=== PATIENT | female | born 1995 | race Caucasian/White ===

== ENCOUNTER 2017-03-07 00:49 | Emergency (ER) | payer OTHER ==
[2017-03-07 00:57] VITALS: BP 110/66; PULSE 71; RESP 16; TEMP 98.6; O2SAT 98
[2017-03-07] MEDS ORDERED: IBUPROFEN 600 MG TAB PO ONE (01:14)
--- NOTE | 2017-03-07 01:34 | EDPHY ---
H & P Stated Complaint: r back, r side pain, heard a "pop" while laughing earlier tonight Time Seen by Provider: 03/07/17 01:00 HPI/ROS: Chief Complaint: Right chest wall pain HPI: 22-year-old woman with past medical history of a prior right chest injury rib fractures had the sudden onset of pain in her right lateral thoracic region while laughing. She felt a sudden sharp pain. His has since had some pain right at that site with deep inspiration. No shortness of breath. No cough. No fevers or chills. She is not smoke. She is not on oral contraceptives. She has not had any recent periods of immobility. No leg pain or swelling. No risk factors for PE. She is not taking any medications. She has been doing yoga and has some chronic pain in that region from prior injuries. No new falls or other trauma. ROS: 10 point Review of Systems is negative except as noted in the HPI. PMH: Rib fractures Social History: No smoking, no alcohol, no recreational drug use Family History: non-contributory Physical Exam: Gen: Awake, Alert, No Distress, vital signs reviewed HEENT: Nose: no rhinorrhea Eyes: PERRLA, EOMI Mouth: Moist mucosa Neck: Supple, no JVD Chest: She has tenderness in the right posterior axillary line at approximately ribs 6 through 8 reproducing presenting complaint, lungs clear to auscultation Heart: S1, S2 normal, no murmur Abd: Soft, non-tender, no guarding Back: no CVA tenderness, no midline tenderness Ext: no edema, non-tender Skin: no rash Neuro: CN II-XII intact, Sensation grossly intact, Strength 5/5 in bilateral upper and lower extremities - Personal History LMP (Females 10-55): 8-14 Days Ago Current Tetanus/Diphtheria Vaccine: Yes - Medical/Surgical History Hx Asthma: No Hx Chronic Respiratory Disease: No Hx Diabetes: No Hx Cardiac Disease: No Hx Renal Disease: No Hx Cirrhosis: No Hx Alcoholism: No Hx HIV/AIDS: No Hx Splenectomy or Spleen Trauma: No Other PMH: L4-L5 fx, appendectomy - Social History Smoking Status: Never smoked Constitutional: Initial Vital Signs Temperature (C) 37.0 C 03/07/17 00:53 Heart Rate 71 03/07/17 00:53 Respiratory Rate 16 03/07/17 00:53 Blood Pressure 110/66 03/07/17 00:53 O2 Sat (%) 98 03/07/17 00:53 O2 Delivery Mode Room Air Allergies/Adverse Reactions: acetaminophen [From Vicodin] Allergy (Verified 03/07/17 00:57) hydrocodone [From Vicodin] Allergy (Verified 03/07/17 00:58) Hives oxycodone [From Percocet] Allergy (Verified 03/07/17 00:58) Hives Home Medications: Medication Instructions Recorded NK [No Known Home Meds] 03/07/17 Medical Decision Making ED Course/Re-evaluation: 22-year-old woman with right lateral or posterior rib pain after laughing. She does not have risk factors for PE. She is not tachycardic. She is not hypoxemic. She is not tachypneic. Chest x-ray shows no acute injury. Patient has been reassured. She will take anti-inflammatories and ice. She will follow up at [facility] for any concerns. Departure - Departure Disposition: Home, Routine, Self-Care Clinical Impression: Chest wall pain Condition: Good Instructions: Chest Wall Pain (ED) Additional Instructions: Take 600 mg of ibuprofen 3 times a day. You may also take acetaminophen per package instructions as needed for pain. Apply ice for 15 minutes of every hour while awake. Follow up with [facility] in 2-3 days for re-evaluation. Return emergency depart for increasing shortness of breath, worsening cough, worsening pain, or any other concerns. Referrals: RICHARD VALLE [Other] - As per Instructions [facility],. [Clinic] - As per Instructions
== END 2017-03-07 01:43 | disposition home or self-care (01) ==
DX: R07.89 Other chest pain (principal)

== ENCOUNTER 2017-03-12 12:03 | Emergency (ER) | payer OTHER ==
[2017-03-12 12:11] VITALS: BP 120/71; PULSE 54; RESP 18; TEMP 98.2; O2SAT 99
--- NOTE | 2017-03-12 12:35 | EDPHY ---
H & P Stated Complaint: seen thursday/?inj r rib area/still having pain/seen at [facility] Time Seen by Provider: 03/12/17 12:35 - Personal History LMP (Females 10-55): 8-14 Days Ago Current Tetanus/Diphtheria Vaccine: Yes - Medical/Surgical History Hx Asthma: No Hx Chronic Respiratory Disease: No Hx Diabetes: No Hx Cardiac Disease: No Hx Renal Disease: No Hx Cirrhosis: No Hx Alcoholism: No Hx HIV/AIDS: No Hx Splenectomy or Spleen Trauma: No Other PMH: L4-L5 fx, appendectomy - Social History Smoking Status: Never smoked Constitutional: Initial Vital Signs Temperature (C) 36.8 C 03/12/17 12:08 Heart Rate 54 L 03/12/17 12:08 Respiratory Rate 18 03/12/17 12:08 Blood Pressure 120/71 03/12/17 12:08 O2 Sat (%) 99 03/12/17 12:08 O2 Delivery Mode Room Air Allergies/Adverse Reactions: acetaminophen [From Vicodin] Allergy (Verified 03/12/17 12:07) hydrocodone [From Vicodin] Allergy (Verified 03/12/17 12:07) Hives oxycodone [From Percocet] Allergy (Verified 03/12/17 12:07) Hives Home Medications: Medication Instructions Recorded NK [No Known Home Meds] 03/07/17 Medical Decision Making ED Course/Re-evaluation: CHIEF COMPLAINT: Right-sided rib pain. HISTORY OF PRESENT ILLNESS: The patient is a 22-year-old female with a history of right-sided rib injuries who presents with right-sided rib pain that has been worsening over the past week. She initially injured the ribs a year ago during soccer but the pain worsened this week due to lifting heavy objects as she has recently moved houses. The pain is worsened with deep breathing. She denies cough, fever, shortness of breath, or other complaints. REVIEW OF SYSTEMS: A 10 point review of systems was performed and is negative with the exception of the elements mentioned in the history of present illness. PHYSICAL EXAM: HR, BP, O2 Sat, RR. Temp noted General Appearance: Alert, well hydrated, appropriate, and non-toxic appearing. Head: Atraumatic without scalp tenderness or obvious injury Eyes: Pupils equal, round, reactive to light and accommodation, EOMI, no trauma , no injection. Ears: Clear bilaterally, no perforation, normal landmarks Nose: Atraumatic, no rhinorrhea, clear. Throat: There is no erythema or exudates, no lesions, normal tonsils, mucus membranes moist. Neck: Supple, 2+ carotid upstroke, nontender, no lymphadenopathy. Respiratory: No retractions, no distress, no wheezes, and no accessory muscle use. Lungs are clear to auscultation bilaterally. Cardiovascular: Regular rate and rhythm, no murmurs, rubs, or gallops. Bilateral carotid, radial, dorsalis pedis, and posterior tibial pulses intact. Good capillary refill all extremities. Gastrointestinal: Abdomen is soft, nontender, non-distended, no masses, no rebound, no guarding, no peritoneal signs. Musculoskeletal: Normal active ROM of all extremities, atraumatic. Neurological: Alert, appropriate, and interactive. The patient has normal DTRs and non-focal cranial nerves, motor, sensory, and cerebellar exam. Skin: No rashes, good turgor, no nodules on palpation. Past medical history: L4-L5 fractures. Past surgical history: Appendectomy. Family history: N/A. Social history: Student. DIFFERENTIAL DIAGNOSIS: The differential diagnosis includes, but is not limited to: rib fracture, rib contusion, rib sprain, musculoskeletal pain. MEDICAL DECISION MAKIN-year-old female presents with ongoing rib pain. She was here 5 days ago for the same complaint and diagnosed with musculoskeletal pain after rib imaging. The pain has persisted since then. I reviewed the imaging she had last visit and the radiologist reading appears to actually be consistent with a rib fracture. I have informed her of this and will prescribe her Ibuprofen as she is allergic to Percocet and Vicodin. She understands to follow up with Dr. Ortega if pain persists. Departure - Departure Disposition: Home, Routine, Self-Care Clinical Impression: Rib fracture Qualifiers: Encounter type: initial encounter Rib fracture type: single rib Fracture type: closed Laterality: right Qualified Code(s): S22.31XA - Fracture of one rib, right side, initial encounter for closed fracture Condition: Good Instructions: Rib Fracture (ED) Additional Instructions: Call Dr. Ortega, surgery, next week for followup if pain persists. Take Ibuprofen as prescribed for pain. Return to the ED for any serious worsening of condition. Referrals: RICHARD VALLE [Other] - As per Instructions Yusef Ortega MD [Medical Doctor] - As per Instructions Report Scribed for: Parrish Francois Report Scribed by: James Morales Date of Report: 03/12/17 Time of Report: 12:48
== END 2017-03-12 13:09 | disposition home or self-care (01) ==
DX: S22.31XD Fracture of one rib, right side, subsequent encounter for fracture with routine healing (principal); X58.XXXD Exposure to other specified factors, subsequent encounter

== ENCOUNTER 2018-07-14 02:13 | Emergency (ER) | payer OTHER ==
[2018-07-14 02:18] VITALS: BP 128/78
[2018-07-14] MEDS ORDERED: FLUCONAZOLE 150 MG TAB PO ONE (02:35)
[2018-07-14] MEDS ORDERED: diphenhydrAMINE 25 MG CAP PO ONE (02:35)
[2018-07-14] MEDS ORDERED: IBUPROFEN 200 MG TAB PO ONE (02:35)
--- NOTE | 2018-07-14 02:36 | EDPHY ---
H & P Stated Complaint: possible allergic rxn to monostat Time Seen by Provider: 07/14/18 02:19 HPI/ROS: HPI The patient presents with vaginal swelling bilaterally which has been present for the last several hours after using Monistat for yeast infection. Patient used a different formulation of Monistat than she usually uses. She has a history of recurrent yeast infections. She noticed swelling in the area which progressed over the course of an hour. She is able to urinate. She does not have any vaginal discharge or bleeding. She does not have a fever. She does not have any rash anywhere else in her body. REVIEW OF SYSTEMS 10 systems were reviewed and negative with the exception of the elements mentioned in the history of present illness. PMHx: Healthy, history of yeast infections previously Soc Hx: College student PHYSICAL General Appearance: Alert, no distress Eyes: Pupils equal and round no pallor or injection ENT, Mouth: Mucous membranes moist Respiratory: Breathing comfortably : There is diffuse edema of her vulva bilaterally with mild erythema, there is no area of fluctuance Neurological: A&O, moves all extremities Skin: Warm and dry, no rashes Musculoskeletal: Neck is supple non tender Extremities: symmetrical, full range of motion Psychiatric: Patient is oriented X 3, there is no agitation Source: Patient Exam Limitations: No limitations - Personal History LMP (Females 10-55): 8-14 Days Ago Current Tetanus Diphtheria and Acellular Pertussis (TDAP): Yes - Medical/Surgical History Hx Asthma: No Hx Chronic Respiratory Disease: No Hx Diabetes: No Hx Cardiac Disease: No Hx Renal Disease: No Hx Cirrhosis: No Hx Alcoholism: No Hx HIV/AIDS: No Hx Splenectomy or Spleen Trauma: No Other PMH: L4-L5 fx, appendectomy - Social History Smoking Status: Never smoked Constitutional: Initial Vital Signs Temperature (C) 36.7 C 07/14/18 02:16 Heart Rate 51 L 07/14/18 02:16 Respiratory Rate 16 07/14/18 02:16 Blood Pressure 128/78 H 07/14/18 02:16 O2 Sat (%) 99 07/14/18 02:16 O2 Delivery Mode Room Air Allergies/Adverse Reactions: acetaminophen [From Vicodin] Allergy (Verified 07/14/18 02:15) hydrocodone [From Vicodin] Allergy (Verified 07/14/18 02:15) Hives oxycodone [From Percocet] Allergy (Verified 07/14/18 02:15) Hives monostat Allergy (Uncoded 07/14/18 02:16) Home Medications: Medication Instructions Recorded NK [No Known Home Meds] 07/14/18 Medical Decision Making Differential Diagnosis: 23-year-old female who presents with vulvar edema in the setting of recent mono stat use. She is currently treating herself for yeast infection which she has a history of. She used a new Monistat cream tonight. Shortly thereafter she developed swelling of her vagina. On exam, she does have edema of her vulva bilaterally which is mild. She is able to urinate. I have instructed her to use ibuprofen, Benadryl until the swelling improves. I have also encouraged her to get into the shower and make sure that all of the Monistat is washed off of her body. She should return to the emergency department if she is worse in any way. - Data Points Medications Given: Discontinued Medications Diphenhydramine HCl (Benadryl) 25 mg PO EDNOW ONE Stop: 07/14/18 02:36 Last Admin: 07/14/18 02:42 Dose: 25 mg Fluconazole (Diflucan) 150 mg PO EDNOW ONE Stop: 07/14/18 02:36 Last Admin: 07/14/18 02:42 Dose: 150 mg Ibuprofen (Motrin) 400 mg PO EDNOW ONE Stop: 07/14/18 02:36 Last Admin: 07/14/18 02:42 Dose: 400 mg Departure - Departure Disposition: Home, Routine, Self-Care Clinical Impression: Allergic reaction caused by a drug, Vulvar edema Condition: Good Instructions: General Allergic Reaction (ED) Additional Instructions: I recommend that you avoid using Monistat in the future. You should continue to take Benadryl 25 mg every 6 hr as needed for any swelling. This should improve in the next 1 day.
== END 2018-07-14 03:07 | disposition home or self-care (01) ==
DX: N90.89 Other specified noninflammatory disorders of vulva and perineum (principal); T78.40XA Allergy, unspecified, initial encounter